=== PATIENT | female | born 1975 | race Caucasian/White ===

== ENCOUNTER 2025-04-11 16:17 | Outpatient (REF) | payer MEDICAID, SELFPAY | END 2025-04-11 16:18 | disposition home or self-care (01) | LOC: HO.HHCLNP 16:17 | PROVIDERS: Visit Provider Nurse Practitioner | DX: Z12.4 Encounter for screening for malignant neoplasm of cervix (principal) | CPT/HCPCS: 88175 ==

== ENCOUNTER 2025-04-23 12:10 | Outpatient (REF) | payer MEDICAID, SELFPAY ==
--- OUTSIDE RECORDS SUMMARY | 2025-04-23 12:54 | XMS_ITS | Encounter Summary ---
Author Organization [employer] Address [address] [facility] [address] [place] [address] Care Team Providers Care Industrial/Organizational Psychologist Name Role Phone Anisha Law NP Primary Care Provider [phone] Encounter Details Date Type Department Care Team (Late st Contact Info) Description 04/11/2025 Results Follow-Up [facility] [address] [place] [address] Anisha Law NP [address] [place] [address] Cologuard colon cancer screening Social History Tobacco Use Types Packs/Day Years Used Date Smoking Tobacco: Never Smokeless Tobacco: Never Alcohol Use Standard Drinks/Week Comments Never 0 (1 standard drink = 0.6 oz pur e alcohol) Alcohol Answer Date Recorded How often do you have a drink containing alcohol ? 0 02/28/2025 How many drinks containing a lcohol do you have on a typical day when you are drinking? 0 02/28/2025 How often do you have six or more drinks on one occasion? 0 02/28/2025 Depression Answer Date Recorded Patient Health Questionnaire-9 Score 6 02/28/2025 Patient Health Questionnaire-9 Score 6 02/28/2025 Last PHQ-9: Questionnaire Data Not on file 0 02/28/2025 Housing Stability Answer Date Recorded What is your housing situation today? I have katharine caal 02/21/[address] you li ve. Do you have problems with any of the following? None of the above 02/21/2025 Food Insecurity Answer Date Recorded Within the past 12 months, y ou worried that your food would run out before you got money to buy more: Often true 02/21/2025 Within the past 12 months,th e food you bought just didn't last and you didn't have enough money to get more: Often true 02/2025 Transportation Answer Date Recorded In the past 12 months, has l ack of transportation kept you from medical appts, meetings, work or from getting things needed for daily living? Yes, it has kept me from medical appointments or getting medications. 02/21/2025 Utilities Answer Date Recorded In the past 12 months, has t he electric, gas, oil or water company threatened to shut off services in your home? No 02/21/2025 Depression Answer Date Recorded Patient Health Questionnaire-2 Score 1 02/28/2025 Internet Access Answer Date Recorded Internet Access Q1 Yes 02/21/2025 Internet Access Q2 Not on file 02/21/2025 Comments Unknown Sex and Gender Information Value Date Recorded Sex Assigned at Female 09/23/2024 9:34 AM EST Legal Sex Female 9:30 AM EST Gender Identity Female 09/23/2024 9:34 AM EST Sexual Orientation Straight 09/23/2024 9: 34 AM EST documented as of this encounter Plan of Treatment Not on file documented as of this encounter Visit Diagnoses Not on filedocumented in this encounter Additional Health Concerns Assessment Noted Time PHQ-9 Depression Total Score: 6 02/29/20 25 10:11 AM EDT documented as of this encounter Care Teams Industrial/Organizational Psychologist Relationship Specialty Start Date End Date Anisha Law NP [address] [place] [id number] PCP - General Family Medicine 02/28/25 documented as of this encounter
[2025-04-23 13:39] LABS: MANUAL DIFF FLAG NO
[2025-04-23 13:43] LABS: Hematocrit 35.7 % (37.0-47.0); Hemoglobin 12.1 g/dl (12.0-16.0); Imm Gran Abs Auto 0.01 X10*3/uL (0.00-0.03); Imm Gran Pct Auto 0.3 % (0.0-0.4); Lymphocytes Absolute Auto 1.2 X10*3/uL (1.2-4.9); Mean Corpuscular HGB Conc 33.9 g/dl (31.0-35.0); Mean Corpuscular Hemoglobin 30.8 pg (27.0-33.0); Mean Corpuscular Volume 90.8 fL (80.0-98.0); NRBC Abs Auto 0.000 X10*3/uL (0.0-0.012); NRBC Pct Auto 0.0 /100WBC (0.0-0.2); Platelet Count 316 X10*3/uL (160-400); Red Blood Count 3.93 X10*6/uL (4.20-5.50); White Blood Count 3.6 X10*3/uL (4.8-10.8)
[2025-04-23 14:01] LABS: Anion Gap 12 (12-20); Blood Urea Nitrogen 14 mg/dL (9-16); Calcium 9.1 mg/dL (8.4-10.2); Carbon Dioxide 29 mmol/L (22-29); Chloride 107 mmol/L (96-108); Cholesterol 176 mg/dL (<200); Estimated Glomerular Filt Rate > 60; HDL Cholesterol 50 mg/dL (>40); Potassium 4.6 mmol/L (3.3-5.1); Sodium 143 mmol/L (135-145); Triglycerides 74 mg/dL (<150)
== END 2025-04-23 12:11 | disposition home or self-care (01) ==
LOC: HO.HHCL 12:10
PROVIDERS: PCP Nurse Practitioner; Visit Provider Nurse Practitioner
DX: Z13.220 Encounter for screening for lipoid disorders (principal)
CPT/HCPCS: 36415; 80048; 80061; 85025

== ENCOUNTER 2025-05-15 10:03 | Outpatient (REF) | payer MEDICAID, OTHER, SELFPAY ==
--- NOTE | ~2025-05-15 | MM_ITS ---
EXAMINATIONS: 1. MM DIAGNOSTIC DIGITAL BREAST TOMOSYNTHESIS, BILATERAL 2. Targeted ultrasound of the right breast 3. Targeted ultrasound of the left breast CLINICAL INFORMATION: According to requisition: Right breast tenderness at 5-6 o'clock. According to the patient, the pain has resolved. COMPARISON: Prior images obtained at another country are not available for review. This will be considered a baseline study. TECHNIQUE: Digital breast tomosynthesis is performed in both the craniocaudal and mediolateral oblique views along with computer-aided detection (CAD). Synthesized 2D images are generated from the tomosynthesis. Spot compression tomosynthesis images also obtained. FINDINGS: BREAST COMPOSITION: The breasts are heterogeneously dense, which may obscure small masses (ACR BI-RADS breast composition Category c). RIGHT BREAST: No significant masses, suspicious calcifications or other abnormalities are seen. Targeted ultrasound of the right breast was performed at the location of the resolved pain per requisition. The survey performed along 5:00 and 6:00 axis did not reveal suspicious sonographic findings. LEFT BREAST: Focal asymmetry in the upper outer quadrant posterior depth at about 10 cm from the nipple partially effaces with spot compression. No suspicious calcifications or other abnormalities are seen. Targeted ultrasound of the left breast was performed at the location of the focal asymmetry. The survey performed throughout the upper outer quadrant shows a 1.0 x 0.6 x 0.8 cm simple cyst at 2 o'clock position 9 cm from the nipple. No abnormal internal vascularity demonstrated with color Doppler evaluation. MM/MM tomosynthesis diagnostic BI IMPRESSION: RIGHT BREAST: Negative, no evidence of malignancy. Clinical follow-up is recommended for the concern of focal pain. Otherwise, normal interval follow-up mammogram is recommended in 12 months. LEFT BREAST: Simple cyst at 2 o'clock position 9 cm from the nipple. Benign, no evidence of malignancy. Normal interval follow-up is recommended in 12 months. ASSESSMENT: BI-RADS 2 - Benign Findings RECOMMENDATION: 1. Patient should be managed based on the clinical impression. 2. Otherwise, routine annual screening mammography. Results were provided to the patient at time of visit by the technologist. This patient's information was entered into a reminder system with a target due date for their next mammogram. Electronically signed by: Erma Fields MD 05/15/2025 11:03 AM EDT
--- OUTSIDE RECORDS SUMMARY | 2025-05-15 11:20 | XMS_ITS | Encounter Summary ---
Author Organization [employer] Address [address] [facility] [address] [place] [address] Care Team Providers Care Family Engagement Specialist Name Role Phone Anisha Law NP Primary Care Provider [phone] Encounter Details Date Type Department Care Team (Late st Contact Info) Description 04/11/2025 Results Follow-Up [facility] [address] [place] [address] Anisha Law NP [address] [place] [address] Cologuard colon cancer screening Social History Tobacco [...] documented as of this encounter Care Teams Family Engagement Specialist Relationship Specialty Start Date End Date Anisha Law NP [address] [place] [id number] PCP - General Family Medicine 02/28/25 documented as of this encounter
--- OUTSIDE RECORDS SUMMARY | 2025-05-15 11:20 | XMS_ITS | Clinical Summary ---
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 methocarbamol (Robaxin) 500 MG tabletIndicatio ns:Cervical pain (neck) Take 1 tablet (500 mg) by mouth every 6 (six) hours for 10 days. 40 tablet 5 Active ibuprofen 600 MG tabletIndicatio ns:Cervical pain (neck) Take 1 tablet (600 mg) by mouth 3 times daily. 90 tablet 1 5 06/10/20 25 Active Diclofenac Sodium 1 % gelIndications: Cervical pain (neck) Apply 1 g topically if needed in the morning, at noon, and at bedtime (pain). 100 g 5 05/11/20 25 Active Problems Problem Noted Date Diagnosed Date Cervical pain (neck) 04/11/2025 Assessment & Plan (04/11/2025 5:52 PM EDT): -rx'd muscle relaxer, topical and oral analgesic -X-ray to evaluate for cervical abnormalities -continue daily stretching exercises -referred to PT Encounters * This document contains information received from the source organization and may not represent a complete record from that organization. Date Type Department Care Team Description 05/09/2025 Results Follow-Up [facility] [address] [place] [address] Anisha Law NP Pap Smear 04/11/2025 10:00 AM EDT Procedure Visit [facility] [address] [place] [address] Anisha Law NP Encounter for Papanicolaou smear for cervical cancer screening (Primary Dx); Cervical pain (neck); Encounter to discuss test results; Breast tenderness; History of breast lump/mass excision; Breast cancer screening by mammogram; Enlargement of labia; Facial paresthesia 04/11/2025 Results Follow-Up [address] [address] Anisha Law NP Cologuard colon cancer screening 04/11/2025 Travel 04/10/[address] [address] Marti Escobar [place] CHART PREP 04/10/2025 Travel 02/28/2025 9:30 AM EDT Office Visit [address] [address] Anisha Law NP Encounter to establish care (Primary Dx); Screening for colon cancer; Encounter for health-related screening; Encounter for screening mammogram for malignant neoplasm of breast; Musculoskeletal neck pain; Mixed anxiety and depressive disorder 02/28/2025 Travel 02/27/[address] [address] Daniel Bullard [place] CHARTPREP 02/24/2025 Patient Outreach [address] [address] Anisha Law NP Care Coordination (CH[facility] outreach for SDOH PT-1 and food needs-LVM ) 02/21/2025 Patient Outreach [facility] [address] [place] [address] Anisha Law NP Pre-visit Planning (SDOH positive. Tobacco screening negative. ) from Last 3 Months Family History Medical History Relation Name Comments Diabetes Mother Relation Name Status Comments Mother Social History Tobacco Use Types Packs/Day Years Used Date Smoking Tobacco: Never Smokeless Tobacco: Never Tobacco Cessation:Counseling Given: Not Answered Alcohol Use Standard Drinks/Week Comments Never 0 [...] Orientation Straight 09/23/2024 9: 34 AM EST Last Filed Vital Signs Vital Sign Reading Time Taken Comments Blood Pressure 120/80 04/11/2025 9:53 AM EDT Pulse 73 04/11/2025 9:53 AM EDT Temperature 36.6 C (97.9 F) 04/11/2025 9:53 AM EDT Respiratory Rate 16 04/11/2025 9:53 AM EDT Oxygen Saturation 99% 04/11/2025 9:53 AM EDT Inhaled Oxygen Concentration - - Weight 54 kg (119 lb) 04/11/2025 9:53 AM EDT Height 154.9 cm (5' 1 ) 04/11/2025 9:53 AM EDT Body Mass Index 22.48 04/11/2025 9:53 AM EDT Plan of Treatment Health Maintenance Due Date Last Done Comments CT Colonography 1975 Colonoscopy 1977 Dental Oral Exam 1975 Dental Prophylaxis 1977 Dental X-Ray: Full Mouth 1977 FIT 1977 FOBT 1975 HIV Screening 1975 Sigmoidoscopy 1975 Family Planning (PISQ) 01/21/1992 Hepatitis C Screening 1995 DTaP/Tdap/Td Vaccines (1 - Tdap) 01/21/1996 Hepatitis B Vaccines (1 of 3 - 19+ 3-dose series) 01/21/1996 HPV/Cotest 2007 COVID-19 Vaccine ( - 2023-2 5 season) 2024 Influenza Vaccine (#1) 2025 Dental X-Ray: Bitewings 11/08/2025 11/07/2024 SDOH Screening 02/21/2026 02/21/2025 Alcohol/Substance Use Screening 02/28/2026 02/28/2025 Depression Screening 02/28/2026 02/28/2025, 02/28/2025 Disability Screening 04/10/2026 04/10/2025 Tobacco Screening 04/11/2026 04/11/2025 Zoster Vaccines (1 of 2) 2027 Mammogram 05/15/2027 05/15/2025, 05/15/2025 Colorectal Cancer Screening 03/25/2028 FIT DNA/Cologuard 03/25/2028 03/25/2025 Cervical Cancer Screening 04/10/2028 Pap Smear 04/10/2028 04/10/2025 RSV Patients and Patients Aged 60 years or older (1 - 1-dose 75+ series) 01/21/2052 HIB Vaccines Aged Out No longer eligi ble based on patient's age to complete this topic HPV Vaccines Aged Out No longer eligi ble based on patient's age to complete this topic Hepatitis A Vaccines Aged Out No long er eligible based on patient's age to complete this topic IPV Vaccines Aged Out No longer eligi ble based on patient's age to complete this topic Meningococcal B Vaccine Aged Out No l onger eligible based on patient's age to complete this topic Meningococcal Vaccine Aged Out No pablo warner eligible based on patient's age to complete this topic Pneumococcal Vaccine: Pediatrics (0 to 5 Years) and At-Risk Patients (6 to 49) Years Aged Out No longer eligible b ased on patient's age to complete this topic RSV under 20 months Aged Out No longe r eligible based on patient's age to complete this topic Rotavirus Vaccines Aged Out No longer eligible based on patient's age to complete this topic Procedures Procedure Name Priority Date/Time Associated Diagnosis Comments BI MAMMOGRAM DIAGNOSTIC TOMOSYNTHESIS BILATERAL Routine 05/15/2025 10:15 AM EDT History of breast lump/mass excision Breast cancer screening by mammogram BI US BREAST LIMITED BILATERAL Routine 05/15/2025 10:07 AM EDT CBC WITH AUTO DIFFERENTIAL Routine 04/23/2025 12:29 PM EDT Encounter for health-related screening LIPID PANEL, STANDARD Routine 04/23/2025 12:29 PM EDT Encounter for health-related screening BASIC METABOLIC PANEL Routine 04/23/2025 12:29 PM EDT Encounter for health-related screening PAP SMEAR Routine 04/10/2025 Encounter for Papanicolaou smear for cervical cancer screening LAB COLOGUARD COLON CANCER SCREEN Routine 03/25/2025 10:30 AM EDT Screening for colon cancer BITEWING - SINGLE RADIOGRAPHIC IMAGE Routine 11/07/2024 10:00 AM EST Symptomatic irreversible pulpitis Dental caries Dental calculus from Last 3 Months or Most Recently Relevant to Health Maintenance Results * BI Mammogram Diagnostic Tomosynthesis Bilateral (05/15/2025 10:15 AM EDT) Anatomical Region Laterality Modality Breast Bilateral Mammography 05/15/2025 10:1 5 AM EDT Narrative 05/15/2025 11:05 AM EDT [facility] [address] [place] [address] Dr. Baez, MICHAEL [address] Mammography Report Signed Patient: Amber Berrios MR#: [id number] : 1975 Acct:[id number] Age/Sex: 50 / F ADM Date: 05/15/25 Loc: HO.MAMMO Attending Dr: Anisha Law Ordering Physician: Anisha Law Results: 2Benign Fi ndings Date of Service: 05/15/25 Follow Up: 1 Year From [facility] Mammogram Procedure(s): MM tomosynthesis diagnostic BI Accession Number(s): [id number] cc: Anisha Law EXAMINATIONS: 1. MM DIAGNOSTIC DIGITAL BREAST TOMOSYNTHESIS, BILATERAL 2. Targeted ultrasound of the right breast 3. Targeted ultrasound of the left breast CLINICAL INFORMATION: According to requisition: Right breast tenderness at 5-6 o'clock. According to the patient, the pain has resolved. COMPARISON: Prior images obtained at another country are not available for review. This will be considered a baseline study. TECHNIQUE: Digital breast tomosynthesis is performed in both the craniocaudal and mediolateral oblique views along with computer-aided detection (CAD). Synthesized 2D images are generated from the tomosynthesis. Spot compression tomosynthesis images also obtained. FINDINGS: BREAST COMPOSITION: The breasts are heterogeneously dense, which may obscure small masses (ACR BI-RADS breast composition Category c). RIGHT BREAST: No significant masses, suspicious calcifications or other abnormalities are seen. Targeted ultrasound of the right breast was performed at the location of the resolved pain per requisition. The survey performed along 5:00 and 6:00 axis did not reveal suspicious sonographic findings. LEFT BREAST: Focal asymmetry in the upper outer quadrant posterior depth at about 10 cm from the nipple partially effaces with spot compression. No suspicious calcifications or other abnormalities are seen. Targeted ultrasound of the left breast was performed at the location of the focal asymmetry. The survey performed throughout the upper outer quadrant shows a 1.0 x 0.6 x 0.8 cm simple cyst at 2 o'clock position 9 cm from the nipple. No abnormal internal vascularity demonstrated with color Doppler evaluation. MM/MM tomosynthesis diagnostic BI IMPRESSION: RIGHT BREAST: Negative, no evidence of malignancy. Clinical follow-up is recommended for the concern of focal pain. Otherwise, normal interval follow-up mammogram is recommended in 12 months. LEFT BREAST: Simple cyst at 2 o'clock position 9 cm from the nipple. Benign, no evidence of malignancy. Normal interval follow-up is recommended in 12 months. ASSESSMENT: BI-RADS 2 - Benign Findings RECOMMENDATION: 1. Patient should be managed based on the clinical impression. 2. Otherwise, routine annual screening mammography. Results were provided to the patient at time of visit by the technologist. This patient's information was entered into a reminder system with a target due date for their next mammogram. Electronically signed by: Erma Fields MD 05/15/2025 11:03 AM EDT Dictated By: Erma Fields MD Signed By: <Electronically signed by Erma Fields MD in OV> 05/15/25 1103 DD/ 1015 TD/TT: 05/15/25 1026 [employer]: Procedure Note Donotuseinterpreter, Image - 05/15/2025 [facility] [address] Baez, [place]HAEL [address] Mammography Report Signed Patient: Amber Berrios MR#: [id number] : 1975Acct:[id number] Age/Sex: 50 / FADM Date: 05/15/25 Loc: HO.MAMMO Attending Dr: Anisha Law Ordering Physician: Anisha LawResults: 2Bjayden sheikh Date of Service: 05/15/25Follow Up: 1 Year From Orig inal Mammogram Procedure(s): MM tomosynthesis diagnostic BI Accession Number(s): [id number] cc: Anisha Law EXAMINATIONS: 1. MM DIAGNOSTIC DIGITAL BREAST TOMOSYNTHESIS, BILATERAL 2. Targeted ultrasound of the right breast 3. Targeted ultrasound of the left breast CLINICAL INFORMATION: According to requisition: Right breast tenderness at 5-6 o'clock. According to the patient, the pain has resolved. COMPARISON: Prior images obtained at another country are not available for review. This will be considered a baseline study. TECHNIQUE: Digital breast tomosynthesis is performed in both the craniocaudal and mediolateral oblique views along with computer-aided detection (CAD). Synthesized 2D images are generated from the tomosynthesis. Spot compression tomosynthesis images also obtained. FINDINGS: BREAST COMPOSITION: The breasts are heterogeneously dense, which may obscure small masses (ACR BI-RADS breast composition Category c). RIGHT BREAST: No significant masses, suspicious calcifications or other abnormalities are seen. Targeted ultrasound of the right breast was performed at the location of the resolved pain per requisition. The survey performed along 5:00 and 6:00 axis did not reveal suspicious sonographic findings. LEFT BREAST: Focal asymmetry in the upper outer quadrant posterior depth at about 10 cm from the nipple partially effaces with spot compression. No suspicious calcifications or other abnormalities are seen. Targeted ultrasound of the left breast was performed at the location of the focal asymmetry. The survey performed throughout the upper outer quadrant shows a 1.0 x 0.6 x 0.8 cm simple cyst at 2 o'clock position 9 cm from the nipple. No abnormal internal vascularity demonstrated with color Doppler evaluation. MM/MM tomosynthesis diagnostic BI IMPRESSION: RIGHT BREAST: Negative, no evidence of malignancy. Clinical follow-up is recommended for the concern of focal pain. Otherwise, normal interval follow-up mammogram is recommended in 12 months. LEFT BREAST: Simple cyst at 2 o'clock position 9 cm from the nipple. Benign, no evidence of malignancy. Normal interval follow-up is recommended in 12 months. ASSESSMENT: BI-RADS 2 - Benign Findings RECOMMENDATION: 1. Patient should be managed based on the clinical impression. 2. Otherwise, routine annual screening mammography. Results were provided to the patient at time of visit by the technologist. This patient's information was entered into a reminder system with a target due date for their next mammogram. Electronically signed by: Erma Fields MD 05/15/2025 11:03 AM EDT Dictated By: Erma Fields MD Signed By: <Electronically signed by Erma Fields MD in OV> 05/15/25 1103 DD/ 1015 TD/TT: 05/15/25 1026 [employer]: us Anisha Law [facility] IMG BI PROCEDURES Final Result * BI US Breast Limited Bilateral (05/15/2025 10:07 AM EDT) Anatomical Region Laterality Modality Breast Bilateral Ultrasound 05/15/2025 10:0 7 AM EDT Narrative 05/15/2025 11:05 AM EDT [facility] [address] [place] [address] Ultrasound Report Signed Patient: Amber Berrios MR#: [id number] : 1975 Acct:[id number] Age/Sex: 50 / F ADM Date: 05/15/25 Loc: HO.MAMMO Attending Dr: Anisha Law Ordering Physician: Anisha Law Date of Service: 05/15/25 Procedure(s): US breast BI limited mamm only Accession Number(s): [id number] cc: Anisha Law EXAMINATIONS: 1. MM DIAGNOSTIC DIGITAL BREAST TOMOSYNTHESIS, BILATERAL 2. Targeted ultrasound of the right breast 3. Targeted ultrasound of the left breast CLINICAL INFORMATION: According to requisition: Right breast tenderness at 5-6 o'clock. According to the patient, the pain has resolved. COMPARISON: Prior images obtained at another country are not available for review. This will be considered a baseline study. TECHNIQUE: Digital breast tomosynthesis is performed in both the craniocaudal and mediolateral oblique views along with computer-aided detection (CAD). Synthesized 2D images are generated from the tomosynthesis. Spot compression tomosynthesis images also obtained. FINDINGS: BREAST COMPOSITION: The breasts are heterogeneously dense, which may obscure small masses (ACR BI-RADS breast composition Category c). RIGHT BREAST: No significant masses, suspicious calcifications or other abnormalities are seen. Targeted ultrasound of the right breast was performed at the location of the resolved pain per requisition. The survey performed along 5:00 and 6:00 axis did not reveal suspicious sonographic findings. LEFT BREAST: Focal asymmetry in the upper outer quadrant posterior depth at about 10 cm from the nipple partially effaces with spot compression. No suspicious calcifications or other abnormalities are seen. Targeted ultrasound of the left breast was performed at the location of the focal asymmetry. The survey performed throughout the upper outer quadrant shows a 1.0 x 0.6 x 0.8 cm simple cyst at 2 o'clock position 9 cm from the nipple. No abnormal internal vascularity demonstrated with color Doppler evaluation. US/US breast BI limited mamm only IMPRESSION: RIGHT BREAST: Negative, no evidence of malignancy. Clinical follow-up is recommended for the concern of focal pain. Otherwise, normal interval follow-up mammogram is recommended in 12 months. LEFT BREAST: Simple cyst at 2 o'clock position 9 cm from the nipple. Benign, no evidence of malignancy. Normal interval follow-up is recommended in 12 months. ASSESSMENT: BI-RADS 2 - Benign Findings RECOMMENDATION: 1. Patient should be managed based on the clinical impression. 2. Otherwise, routine annual screening mammography. Results were provided to the patient at time of visit by the technologist. This patient's information was entered into a reminder system with a target due date for their next mammogram. Electronically signed by: Erma Fields MD 05/15/2025 11:03 AM EDT Dictated By: Erma Fields MD Signed By: <Electronically signed by Erma Fields MD in OV> 05/15/25 1103 DD/ 1007 TD/TT: 05/15/25 1059 [employer]: Procedure Note Donotuseinterpreter, Image - 05/15/2025 [facility] [address] [place] [address] [place] [address] Ultrasound Report Signed Patient: Amber Berrios MR#: [id number] : 1975Acct:[id number] Age/Sex: 50 / FADM Date: 05/15/25 Loc: HO.MAMMO Attending Dr: Anisha Law Ordering Physician: Anisha Law Date of Service: 05/15/25 Procedure(s): US breast BI limited mamm only Accession Number(s): [id number] cc: Anisha Law EXAMINATIONS: 1. MM DIAGNOSTIC DIGITAL BREAST TOMOSYNTHESIS, BILATERAL 2. Targeted ultrasound of the right breast 3. Targeted ultrasound of the left breast CLINICAL INFORMATION: According to requisition: Right breast tenderness at 5-6 o'clock. According to the patient, the pain has resolved. COMPARISON: Prior images obtained at another country are not available for review. This will be considered a baseline study. TECHNIQUE: Digital breast tomosynthesis is performed in both the craniocaudal and mediolateral oblique views along with computer-aided detection (CAD). Synthesized 2D images are generated from the tomosynthesis. Spot compression tomosynthesis images also obtained. FINDINGS: BREAST COMPOSITION: The breasts are heterogeneously dense, which may obscure small masses (ACR BI-RADS breast composition Category c). RIGHT BREAST: No significant masses, suspicious calcifications or other abnormalities are seen. Targeted ultrasound of the right breast was performed at the location of the resolved pain per requisition. The survey performed along 5:00 and 6:00 axis did not reveal suspicious sonographic findings. LEFT BREAST: Focal asymmetry in the upper outer quadrant posterior depth at about 10 cm from the nipple partially effaces with spot compression. No suspicious calcifications or other abnormalities are seen. Targeted ultrasound of the left breast was performed at the location of the focal asymmetry. The survey performed throughout the upper outer quadrant shows a 1.0 x 0.6 x 0.8 cm simple cyst at 2 o'clock position 9 cm from the nipple. No abnormal internal vascularity demonstrated with color Doppler evaluation. US/US breast BI limited mamm only IMPRESSION: RIGHT BREAST: Negative, no evidence of malignancy. Clinical follow-up is recommended for the concern of focal pain. Otherwise, normal interval follow-up mammogram is recommended in 12 months. LEFT BREAST: Simple cyst at 2 o'clock position 9 cm from the nipple. Benign, no evidence of malignancy. Normal interval follow-up is recommended in 12 months. ASSESSMENT: BI-RADS 2 - Benign Findings RECOMMENDATION: 1. Patient should be managed based on the clinical impression. 2. Otherwise, routine annual screening mammography. Results were provided to the patient at time of visit by the technologist. This patient's information was entered into a reminder system with a target due date for their next mammogram. Electronically signed by: Erma Fields MD 05/15/2025 11:03 AM EDT Dictated By: Erma Fields MD Signed By: <Electronically signed by Erma Fields MD in OV> 05/15/25 1103 DD/ 1007 TD/TT: 05/15/25 1059 [employer]: us Anisha Law MARTIN IMG US PROCEDURES Final Result * (ABNORMAL) CBC auto differential (04/23/2025 12:29 PM EDT) White Blood Count 3.6(L) 4.8 - 10.8 X10*3/uL [facility] Red Blood Count 3.93(L) 4.20 - 5.50 X10*6/uL [facility] Hemoglobin 12.1 12.0 - 16.0 g/dl [facility] Hematocrit 35.7(L) 37.0 - 47.0 % [facility] Mean Corpuscular Volume 90.8 80.0 - 98.0 fL [facility] Mean Corpuscular Hemoglobin 30.8 27.0 - 33.0 pg [facility] Mean Corpuscular HGB Conc 33.9 31.0 - 35.0 g/dl [facility] Red Cell Distribution Width 12.2 11.0 - 16.0 % [facility] Platelet Count 316 160 - 400 X10*3/uL [facility] Mean Platelet Volume 11.6 9.4 - 12.3 fL [facility] Neutrophils Percent Auto 52.7 45 - 73 % [facility] Imm Gran Pct Auto 0.3 0.0 - 0.4 % [facility] Lymphocytes Percent Auto 33.0 20 - 40 % [facility] Monocytes Percent Auto 10.7 2 - 11 % [facility] Eosinophils Percent Auto 2.2 0 - 4 % [facility] Basophils Percent Auto 1.1 0 - 2 % [facility] NRBC Pct Auto 0.0 0.0 - 0.2 /100WBC [facility] Neutrophils Absolute Auto 1.9(L) 2.0 - 8.3 x10*3/uL [facility] Imm Gran Abs Auto 0.01 0.00 - 0.03 X10*3/uL [facility] Lymphocytes Absolute Auto 1.2 1.2 - 4.9 X10*3/uL [facility] Monocytes Absolute Auto 0.4 0.1 - 1.2 X10*3/uL [facility] Eosinophils Absolute Auto 0.1 0.0 - 0.4 X10*3/uL [facility] Basophils Absolute Auto 0.0 0.0 - 0.2 X10*3/uL [facility] NRBC Abs Auto 0.000 0.0 - 0.012 X10*3/uL [facility] Blood Venous blood specimen / Unknown 04/23/2025 12:29 PM EDT 04/23/2025 1:36 PM EDT us Anisha Law [facility] BLOOD ORDERABLES Final Resu lt [facility] [address] [place] [phone] * (ABNORMAL) Lipid Panel, Standard (04/23/2025 12:29 PM EDT) Triglycerides 74 <150 mg/dL [facility] Comment:Desirable Triglyceri de: less than 150 mg/dLBorderline High Triglyceride 150-199 mg/dLHigh Triglyceride: 200-499 mg/dLVery High Triglyceride: greater than or equal to 5OO mg/dL Cholesterol 176 <200 mg/dL [facility] Comment:Desirable Cholestero l: less than 200 mg/dLBorderline High Cholesterol: 200-239 mg/dLHigh Cholesterol: greater than 239 mg/dL LDL Cholesterol Calculated 112(H) <100 mg/dL [facility] Comment:Desirable LDL: less than 100 mg/dLNear Optimal/Above Optimal LDL: 110- 129 mg/dLBorderline High LDL: 130-159 mg/dLHigh LDL: 160-189 mg/dLVery High LDL: greater than or equal to 190 mg/dL HDL Cholesterol 50 >40 mg/dL [facility] Comment:Desirable HDL: great er than 40 mg/dL Note: This HDL assay may give artificially low results in patients with liver disease. Blood Venous blood specimen / Unknown 04/23/2025 12:29 PM EDT 04/23/2025 1:36 PM EDT [facility] BLOOD ORDERABLES Final Resu lt Performing Organization Address City/[facility]/ZIP Co de Phone Number [facility] [address] [place] [phone] [phone] * Basic Metabolic Panel (04/23/2025 12:29 PM EDT) Sodium 143 135 - 145 mmol/L [facility] Potassium 4.6 3.3 - 5.1 mmol/L [facility] Chloride 107 96 - 108 mmol/L [facility] Carbon Dioxide 29 22 - 29 mmol/L [facility] Anion Gap 12 12 - 20 [facility] Urea Nitrogen (BUN) 14 9 - 16 mg/dL [facility] Creatinine, Serum 0.57 0.5 - 1.4 mg/dL [facility] Estimated Glomerular Filt Rate >60 [facility] Comment:Chronic Kidney Disea se: Estimated GFR < 60 mL/min/1.02c2Imtkfi Kidney Disease: Estimated GFR < 15 mL/min/1.73m2 Glucose 91 60 - 115 mg/dL [facility] Calcium 9.1 8.4 - 10.2 mg/dL [facility] Blood Venous blood specimen / Unknown 04/23/2025 12:29 PM EDT 04/23/2025 1:36 PM EDT [facility] BLOOD ORDERABLES Final Resu lt Performing Organization Address City/[facility]/ZIP Co de Phone Number [facility] [address] [place] [address] [phone] * Pap Smear (04/10/2025) Swab 04/10/2025 04/14/2025 8:0 0 AM EDT Narrative [facility] - 04/22/2025 4:19 PM EDT ----- ------- Name: Amber Berrios Age/Sex: 50/F : 1975 Unit#: [id number] Attend Dr: Anisha Law Re04/11/25 Status: DEP [facility] ------- SPEC : [id number] RECD: 04/14/25 STATUS: JUANJO KOHLIAlyson NUM: [id number] NAM: 04/10/25- SUBM DR: Anisha Law ENTERED: 04/14/25 SP TYPE: Pap Smr OT DR: ORDERED: Pap Smear, PAP path review Interpretation Satisfactory for evaluation. Negative for intraepithelial lesion or malignancy. Acute inflammatory cells present. Reactive cellular changes. Clinical Information LMP: Unknown date Previous PAP test: 5 years ago, Unknown findings Other history: Encounter for Papanicolaou smear for cervical cancer screening Material Received ThinPrep-Cervical PAP Disclaimer As of July 10, 2024, the technical services to include automated prescreening performed by the ThinPrep Imaging System, PAP screening and HPV testing will be performed at [facility] (CLIA #[id number]), [address] [place] [address]. Testing for HPV was performed using the [employer] system. The presence of HPV in the female genital tract is associated with a number of diseases, including cervical carcinoma. The HPV DNA high risk pool tests for HPV 31, 33, 35, 39, 45, 51, 52, 56, 58, 59, 66 and 68. The testing for HPV 16 and 18 genotypes has also been performed. A positive result indicates detection of nucleic acid sequences from one or more subtypes, whereas a negative result indicates such sequences were not detected. All professional services are performed by [facility] ([address] [place] [address]; ; CLIA #[id number]). The PAP Test is a screening procedure with the inherent possibility of both false negative and false positive results. Results should be interpreted in the context of historic and current clinical findings. Reliability of the PAP Test is enhanced by performing the test on a regular repetitive basis. ----- ------- Signed (signature on file) Donya Constantino MD 04/22/25 1619 ----- ------- END OF REPORT us Anisha Law NP LAB CYTOLOGY ORDERABLES Final R esult [facility] [address] [place] [phone] * Cologuard?? colon cancer screening (03/25/2025 10:30 AM EDT) Cologuard Result Negative Negative 03/30/20 1:56 AM EDT [facility] (CLIA #:[id number]) Comment: The Cologuard (TM) test was performed on this specimen. NEGATIVE TEST RESULT. A negative Cologuard result indicates a low likelihood that a colorectal cancer (CRC) or advanced adenoma (adenomatous polyps with more advanced pre-malignant features) is present. The chance that a person with a negative Cologuard test has a colorectal cancer is less than 1 in 1500 (negative predictive value >99.9%) or has an advanced adenoma is less than 5.3% (negative predictive value 94.7%). These data are based on a prospective cross-sectional study of 10,000 individuals at average risk for colorectal cancer who were screened with both Cologuard and colonoscopy. (Danielle Ríos et al, N Engl J Med 2014;370(14):1286- 1297) The normal value (reference range) for this assay is negative. COLOGUARD RE-SCREENING RECOMMENDATION: Periodic colorectal cancer screening is an important part of preventive healthcare for asymptomatic individuals at average risk for colorectal cancer. Following a negative Cologuard result, the [place] [employer] and U.S. Multi-Society Task Force screening guidelines recommend a Cologuard re-screening interval of 3 years. References: [place] [employer] Guideline for Colorectal Cancer Screening: https://www.cancer.org/cancer/vesbz-krfpzz-phlxmn/gqsevygwe-fajbibmsz-mdyvhhr/ac s-rec ommendations.html.; Kenneth DK, Sabrina LAMA, Damon FelixK, Colorectal Cancer Screening: Recommendations for Physicians and Patients from the U.S. Multi-Society Task Force on Colorectal Cancer Screening , Am J Gastroenterology 2017; 112:1659-2975. TEST DESCRIPTION: Composite algorithmic analysis of stool DNA-biomarkers with hemoglobin immunoassay. Quantitative values of individual biomarkers are not reportable and are not associated with individual biomarker result reference ranges. Cologuard is intended for colorectal cancer screening of adults of either sex, 45 years or older, who are at average-risk for colorectal cancer (CRC). Cologuard has been approved for use by the U.S. FDA. The performance of Cologuard was established in a cross sectional study of average-risk adults aged 50-84. Cologuard performance in patients ages 45 to 49 years was estimated by sub-group analysis of near-age groups. Colonoscopies performed for a positive result may find as the most clinically significant lesion: colorectal cancer [4.0%], advanced adenoma (including sessile serrated polyps greater than or equal to 1cm diameter) [20%] or non- advanced adenoma [31%]; or no colorectal neoplasia [45%]. These estimates are derived from a prospective cross-sectional screening study of 10,000 individuals at average risk for colorectal cancer who were screened with both Cologuard and colonoscopy. (Danielle Andujar. et al, N Engl J Med 2014;370(14):8350-2499.) Cologuard may produce a false negative or false positive result (no colorectal cancer or precancerous polyp present at colonoscopy follow up). A negative Cologuard test result does not guarantee the absence of CRC or advanced adenoma (pre-cancer). The current Cologuard screening interval is every 3 years. ([place] [employer] and U.S. Multi-Society Task Force). Cologuard performance data in a 10,000 patient pivotal study using colonoscopy as the reference method can be accessed at the following location: www.GroupCharger/results. Additional description of the Cologuard test process, warnings and precautions can be found at www.Six3ogSambazonrd.com. Stool specimen (specimen) 03/25/2025 10:30 AM EDT 03/26/2025 1:12 PM EDT Anisha Hand [facility] DI[facility]STICS ORDER EVONNE Final Result [facility] (CLIA #:[id number]) [address] [place], [place] [id number], from Last 3 Months Insurance [place]-[facility] MEDICAID LIMITED ADULT DENTAL - HSN FULL (MEDICAID) Care Teams Brush Or Broom Cutter Relationship Specialty Start Date End Date Appram, Anisha, [facility] [address] [place] [phone] PCP - General Family Medicine 02/28/25
--- OUTSIDE RECORDS SUMMARY | 2025-05-15 11:20 | XMS_ITS | Encounter Summary ---
Author Organization [employer] Address [address] [facility] [address] [place] [address] Care Team Providers Care Radioisotope Production Operator Name Role Phone Anisha Law ETHYLENE PLANT HELPER Primary Care Provider [phone] Reason for Visit * Reason Onset Date Comments Results 05/09/2025 Encounter Details Date Type Department Care Team (Late st Contact Info) Description 05/09/2025 Results Follow-Up [facility] [address] [place] [address] Anisha Law NP [address] [place] [address] Pap Smear Social History Tobacco Use Types Packs/Day Years [...] AM EST documented as of this encounter Miscellaneous Notes * Telephone Encounter - Leila Spaulding RN - 05/12/2025 9:43 AM EDT TC placed to pt via [employer]! lead java developer architect (Talon ID#[id number]) to inform and advise of below PCP message. ALISE Barboza to call office back and ask to speak to the blue team nurses. ----- Message from Anisha Law sent at 05/09/2025 9:25 PM EDT ----- Please inform patient of normal pap test. Plan to repeat in 3 years as HPV testings was not completed this time. Thanks ----- Message ----- From: Interface, Lab Results In Sent: 04/22/2025 4:20 PM EDT To: Anisha Law NP documented in this encounter Plan of Treatment Not on file documented as of this encounter Visit Diagnoses Not on filedocumented in this encounter Additional Health Concerns Assessment Noted Time PHQ-9 Depression Total Score: 6 02/29/20 10:11 AM EDT documented as of this encounter Care Teams Radioisotope Production Operator Relationship Specialty Start Date End Date Anisha Law NP [address] [place] [address] PCP - General Family Medicine 02/28/25 documented as of this encounter
--- OUTSIDE RECORDS SUMMARY | 2025-05-15 11:20 | XMS_ITS | Clinical Summary ---
Author Organization [facility] Address [address] [facility] [address] [place] [phone] Phone Care Team Providers Care Credit Rating Inspector Name Role Phone Pcp, Unknown Primary Care Provider Unavailabl e Encounters Date Type Department Care Team Description 05/12/2025 Transcribe Orders [facility] [address] [place] [address] Anisha Law NP Encounter for rehabilitation (Primary Dx) from Last 3 Months Social History Tobacco Use Types Packs/Day Years Used Date Smoking Tobacco: Never Assessed Comments Unknown Sex and Gender Information Value Date Recorded Sex Assigned at Not on file Legal Sex Female 8:38 AM EDT Gender Identity Not on file Sexual Orientation Not on file Plan of Treatment Not on file Medical Devices Not on file Care Teams Credit Rating Inspector Relationship Specialty Start Date End Date Pcp, Unknown PCP - General 05/12/25 Additional Source Comments The information contained in this document represents components of the legal health record. It is not the complete legal health record.[facility]
--- OUTSIDE RECORDS SUMMARY | 2025-05-15 11:20 | XMS_ITS | Encounter Summary ---
Author Organization [facility] Address [address] [place] [phone] Phone Care Team Providers Care Field Underwriter Name Role Phone Pcp, Unknown Primary Care Provider Unavailabl e Reason for Referral * Physical Therapy (Routine) - New Request Specialty Diagnoses / Procedures Referred By Estephania t Referred To Contact Physical Therapy Diagnoses Encounter for rehabilitation Anisha Law NP [address] [place] [address] Phone: tel: fax: [address] [address] Phone: tel: Referral ID Status Reason Start Date Expiration Date V isits Requested Visits Authorized [id number] New Request 05/12/2025 05/12/2026 1 1 Encounter Details Date Type Department Care Team (Latest Contact Info) Description 05/12/2025 Transcribe Orders [facility] [address] [place] [address] Anisha Law NP [address] [place] [address] Encounter for rehabilitation (Primary Dx) Social History Tobacco Use Types Packs/Day Years Used Date Smoking Tobacco: Never Assessed Comments Unknown Sex and Gender Information Value Date Recorded Sex Assigned at Not on file Legal Sex Female 8:38 AM EDT Gender Identity Not on file Sexual Orientation Not on file documented as of this encounter Plan of Treatment Scheduled Referrals Name Type Priority Associated Diagnoses Orde r Schedule Ambulatory referral to [facility] Physical Therapy Outpatient Referral Routine Encounter for rehabilitation Ordered: 05/12/2025 documented as of this encounter Visit Diagnoses Diagnosis Encounter for rehabilitation- Primary documented in this encounter Care Teams Field Underwriter Relationship Specialty Start Date End Date Pcp, Unknown PCP - General 05/12/25 documented as of this encounter Additional Source Comments The information contained in this document represents components of the legal health record. It is not the complete legal health record.[facility]
== END 2025-05-15 10:04 | disposition home or self-care (01) ==
LOC: HO.MAMMO 10:03
PROVIDERS: PCP Nurse Practitioner; Visit Provider Nurse Practitioner
DX: Z98.890 Other specified postprocedural states (principal); Z12.31 Encounter for screening mammogram for malignant neoplasm of breast
CPT/HCPCS: 76642; 77062; 77066

== ENCOUNTER → 2025-05-15 10:30 | Outpatient (BNV) | payer MEDICAID, SELFPAY | PROVIDERS: PCP Nurse Practitioner; Visit Provider Radiology Body Imaging | DX: N60.02 Solitary cyst of left breast (principal); N64.4 Mastodynia | CPT/HCPCS: 76642; 77062; 77066 ==